=== PATIENT | male | born 1945 | race Hispanic/Latino ===

== ENCOUNTER 2024-09-20 10:15 | Emergency (ER) | payer OTHER ==
[2024-09-20 11:10] LABS: #Basophils 0.06 10x3/uL (0.0-0.2); #Eosinophils 0.53 10x3/uL (0.0-0.5); #Monocytes 0.56 10x3/uL (0.0-1.1); %Basophils 0.9 % (0.0-2.0); %Eosinophils 8.3 % (0.0-6.0); %Monocytes 8.8 % (0.0-10.0); %Neutrophils 62.7 % (40.0-75.0); Hematocrit 43.6 % (38.8-50.0); Hemoglobin 14.6 g/dL (13.5-17.5); Mean Corpuscular HGB CONC 33.5 g/dL (32.0-36.0); Mean Corpuscular Hemoglobin 28.1 pg (27.0-33.0); Mean Corpuscular Volume 83.8 fL (81.2-95.1); Platelet Count 197 10x3/uL (150-450); RBC Distribution Width 13.2 % (11.5-14.5); White Blood Cell (WBC) Count 6.38 10x3/uL (3.5-10.5)
[2024-09-20 11:23] LABS: Anion Gap 14 mmol/L (10-20); BUN (Urea Nitrogen) 17 mg/dL (8.4-25.7); Calc. Creatinine Clearance 0 mL/min (70-130); Calcium 9.7 mg/dL (7.8-10.44); Carbon Dioxide 26 mmol/L (23-31); Chloride 105 mmol/L (98-107); Estimated GFR 75; Glucose 102 mg/dL (83-110); Potassium 3.8 mmol/L (3.5-5.1); Sodium 141 mmol/L (136-145)
== END 2024-09-20 11:46 ==
LOC: EEVIPCON 10:15 → CSHERS 10:15
DX: M79.605 Pain in left leg (principal); M79.604 Pain in right leg; M79.89 Other specified soft tissue disorders; I10 Essential (primary) hypertension; I25.2 Old myocardial infarction; Z79.01 Long term (current) use of anticoagulants; Z79.02 Long term (current) use of antithrombotics/antiplatelets
CPT/HCPCS: 80048; 83880; 85025; 99283